=== PATIENT | female | born 1985 | race Hispanic/Latino ===

== ENCOUNTER 2022-04-28 19:51 | Inpatient (IN) | payer MEDICAID ==
[~2022-04-28] VITALS: Ht 154.9 cm; Wt 82.6 kg
[2022-04-28 20:23] LABS: APPEARANCE,URINE CLEAR (CLEAR); BILIRUBIN,URINE NEGATIVE (NEGATIVE); COLOR,URINE LIGHT-YELLOW (YELLOW); GLUCOSE, URINE (UA) NEGATIVE (NEGATIVE); KETONES,URINE 10 mg/dL (NEGATIVE); LEUKOCYTE ESTERASE ,URINE NEGATIVE Leu/uL (NEGATIVE); NITRATE,URINE NEGATIVE (NEGATIVE); OCCULT BLOOD,URINE NEGATIVE (NEGATIVE); PH,URINE 6.5 (5.0-8.0); PROTEIN,URINE NEGATIVE (NEGATIVE); UROBILINOGEN,URINE 0.2 mg/dL (0.2-1.0)
[2022-04-28 20:44] LABS: BASOPHILS % (AUTO) 0.4 % (0.0-5.0); EOSINOPHILS % (AUTO) 0.7 % (0.0-8.0); HEMATOCRIT 38.9 % (36-48); LYMPHOCYTES % (AUTO) 17.9 % (21.0-51.0); MEAN CORPUSCULAR HEMOGLOBIN 29.4 pg (27.0-33.0); MEAN CORPUSCULAR HGB CONC 33.9 g/dL (32.0-36.0); MEAN CORPUSCULAR VOLUME 86.6 fL (79-99); MONOCYTES % (AUTO) 9.1 % (3.0-13.0); NEUTROPHILS % (AUTO) 71.5 % (40.0-77.0); PLATELET COUNT (AUTO) 268 K/uL (130-400); RED BLOOD CELL COUNT(AUTO) 4.49 MIL/uL (4.00-5.50); RED CELL DISTRIBUTION WIDTH 13.1 % (11.0-15.5); WHITE BLOOD COUNT (AUTO) 13.5 K/uL (4.8-10.8)
[2022-04-28 20:55] LABS: CREATININE 0.7 mg/dL (0.5-1.5); POTASSIUM 3.9 mmol/L (3.5-5.1)
[2022-04-28 20:59] LABS: ALBUMIN 3.8 g/dL (3.5-5.0); TOTAL PROTEIN, SERUM 8.2 g/dL (6.0-8.3)
[2022-04-28] MEDS ORDERED: 0.9%NACL 1000ML 1,000 ML IV ONE (21:00)
[2022-04-28] MEDS ORDERED: ONDANSETRON 4MG INJ IVP ONE (21:00)
[2022-04-28] MEDS ORDERED: MORPHINE 4 MG SYG IM ONE (21:00)
[2022-04-28] MEDS: LEVOFLOXACIN 500 MG/D5W 100 ML 100 ML IV SCH (23:58)
[2022-04-28] MEDS: 0.9%NACL 1000ML 1,000 ML IV SCH (23:58)
[2022-04-29] MEDS ORDERED: ONDANSETRON 4MG INJ IVP PRN
[2022-04-29] MEDS ORDERED: MORPHINE 2 MG SYG IVP PRN
[2022-04-29 02:20] VITALS: BP 119/77
[2022-04-29] MEDS: METRONIDAZOLE 500MG/100ML BAG 100 ML IVPB SCH ×3 (06:44→22:01)
[2022-04-29 08:00] VITALS: BP 100/56
[2022-04-29] MEDS: PANTOPRAZOLE 40 MG/VIAL IVP SCH (09:49)
[2022-04-29] MEDS: ACETAMINOPHEN 325 MG TAB PO PRN ×2 (10:49→18:36)
[2022-04-29] MEDS: 0.9%NACL 1000ML 1,000 ML IV SCH ×2 (12:03→14:46)
[2022-04-29 14:30] VITALS: BP 112/72
[2022-04-29 19:30] VITALS: BP 106/75
[2022-04-29 23:00] VITALS: BP 108/75
[2022-04-30] MEDS: LEVOFLOXACIN 500 MG/D5W 100 ML 100 ML IV SCH (00:26)
[2022-04-30] MEDS: 0.9%NACL 1000ML 1,000 ML IV SCH (04:33)
[2022-04-30 04:40] VITALS: BP 121/83
[2022-04-30 04:55] LABS: BASOPHILS % (AUTO) 0.7 % (0.0-5.0); EOSINOPHILS % (AUTO) 1.8 % (0.0-8.0); HEMATOCRIT 34.9 % (36-48); LYMPHOCYTES % (AUTO) 20.4 % (21.0-51.0); MEAN CORPUSCULAR HEMOGLOBIN 29.5 pg (27.0-33.0); MEAN CORPUSCULAR HGB CONC 32.7 g/dL (32.0-36.0); MEAN CORPUSCULAR VOLUME 90.2 fL (79-99); MONOCYTES % (AUTO) 8.4 % (3.0-13.0); NEUTROPHILS % (AUTO) 68.3 % (40.0-77.0); PLATELET COUNT (AUTO) 245 K/uL (130-400); RED BLOOD CELL COUNT(AUTO) 3.87 MIL/uL (4.00-5.50); RED CELL DISTRIBUTION WIDTH 13.2 % (11.0-15.5); WHITE BLOOD COUNT (AUTO) 7.1 K/uL (4.8-10.8)
[2022-04-30 06:02] LABS: CREATININE 0.5 mg/dL (0.5-1.5); CRP QUANTITATIVE 114.2 mg/L (0.00-9.0); POTASSIUM 3.9 mmol/L (3.5-5.1); TOTAL PROTEIN, SERUM 6.7 g/dL (6.0-8.3)
[2022-04-30] MEDS: METRONIDAZOLE 500MG/100ML BAG 100 ML IVPB SCH ×2 (06:13→13:33)
[2022-04-30 07:40] VITALS: BP 109/75
[2022-04-30] MEDS: PANTOPRAZOLE 40 MG/VIAL IVP SCH (09:01)
[2022-04-30] MEDS ORDERED: AMOX1TAB16 PO (09:32)
[2022-04-30] MEDS ORDERED: DICYCLOMINE HCL 20 MG TAB PO SCH (10:00)
[2022-04-30 11:35] VITALS: BP 108/74
[2022-04-30] MEDS ORDERED: LACTULOSE 20 GM/30 ML UDCUP PO SCH (13:00)
== END 2022-04-30 14:55 | disposition home or self-care (01) | DRG 244 ==
LOC: EDH 19:51 → EDHIP 19:52 → 3DH 04-29 02:58 → WSH 04-29 14:22
PROVIDERS: ADMIT Internal Medicine; ATTEND Internal Medicine
DX: K57.32 Diverticulitis of large intestine without perforation or abscess without bleeding (principal); E44.0 Moderate protein-calorie malnutrition; E87.1 Hypo-osmolality and hyponatremia; D72.829 Elevated white blood cell count, unspecified; E66.9 Obesity, unspecified; Z68.34 Body mass index [BMI] 34.0-34.9, adult
CPT/HCPCS: 36415; 74176; 80053; 81003; 81025; 83690; 83735; 84145; 84484; 85025; 86140; C9113; G0378; J1956; J2270; J2405; J3490; J7030

== ENCOUNTER → 2022-08-04 | Outpatient (CLI) | payer MEDICAID ==
[~2022-08-04] MED LIST: AMOX1TAB16 PO
== END | disposition home or self-care (01) ==
LOC: RAH 09:11
PROVIDERS: ATTEND Family Medicine
DX: N63.11 Unspecified lump in the right breast, upper outer quadrant (principal)
CPT/HCPCS: 76641

== ENCOUNTER → 2024-06-04 | Outpatient (CLI) | payer BC ==
[2024-06-04 12:04] LABS: BASOPHILS # (AUTO) 0.07 K/uL (0.00-0.20); BASOPHILS % (AUTO) 1.1 % (0.0-5.0); EOSINOPHILS # (AUTO) 0.16 K/uL (0.00-0.70); EOSINOPHILS % (AUTO) 2.5 % (0.0-8.0); HEMATOCRIT 41.7 % (36-48); IMMATURE GRANULOCYTE ABSOLUTE 0.02 K/uL (0-1); LYMPHOCYTES # (AUTO) 1.9 K/uL (1.0-4.8); LYMPHOCYTES % (AUTO) 29.6 % (21.0-51.0); MEAN CORPUSCULAR HEMOGLOBIN 29.6 pg (27.0-33.0); MEAN CORPUSCULAR HGB CONC 31.9 g/dL (32.0-36.0); MEAN CORPUSCULAR VOLUME 92.7 fL (79-99); MONOCYTES # (AUTO) 0.4 K/uL (0.1-1.0); MONOCYTES % (AUTO) 6.2 % (3.0-13.0); NEUTROPHILS # (AUTO) 3.9 K/uL (1.8-7.7); NEUTROPHILS % (AUTO) 60.3 % (40.0-77.0); PLATELET COUNT (AUTO) 315 K/uL (130-400); RED CELL DISTRIBUTION WIDTH 13.1 % (11.0-15.5); WHITE BLOOD COUNT (AUTO) 6.4 K/uL (4.8-10.8)
[2024-06-04 12:19] LABS: ALBUMIN 3.3 g/dL (3.5-5.0); BILIRUBIN,TOTAL 0.2 mg/dL (0.2-1.0); CREATININE 0.7 mg/dL (0.5-1.0); MAGNESIUM 1.8 mg/dL (1.80-2.40); POTASSIUM 4.4 mmol/L (3.5-5.1); THYROID STIMULATING HORMONE 3.13 uIU/mL (0.36-3.74); TOTAL PROTEIN, SERUM 7.1 g/dL (6.0-8.3)
[2024-06-04 12:21] LABS: HEMOGLOBIN A1C 5.3 % (4.0-6.0)
== END | disposition home or self-care (01) ==
LOC: LAB 08:00
PROVIDERS: ATTEND Student in an Organized Health Care Education/Training Program
DX: E78.49 Other hyperlipidemia (principal); E86.0 Dehydration; R07.9 Chest pain, unspecified
CPT/HCPCS: 36415; 80053; 80061; 83036; 83735; 84443; 85025